=== PATIENT | male | born 1975 | race Caucasian/White ===

== ENCOUNTER 2017-08-23 03:09 | Emergency (ER) | END 2017-08-23 05:10 | disposition home or self-care (01) ==

== ENCOUNTER 2018-08-09 11:44 | Emergency (ER) | END 2018-08-09 15:48 | disposition home or self-care (01) ==

== ENCOUNTER 2018-11-12 07:20 | Inpatient (IN) | payer OTHER, MEDICAID ==
[~2018-11-12] VITALS: Ht 172.7 cm; Wt 114.5 kg
[2018-11-12] VITALS (17 sets, daily range): BP systolic 130–171; BP diastolic 67–96; PULSE 48–100; RESP 14–29; Ht 172.7 cm; Wt 114.5 kg
[~2018-11-12 07:20] MED LIST: SUCCINYLCHOLINE CHLORIDE 100 MG/5 ML SYG IV ONE
[2018-11-12] MEDS ORDERED: SOD CHLORIDE 0.9% 1,000 ML IV SCH (07:30)
[2018-11-12] MEDS ORDERED: CEFAZOLIN 2 GM/50 ML (PMX) 50 ML IVPB SCH (07:30)
[2018-11-12] MEDS ORDERED: PROPOFOL 20 ML ONE (10:51)
[2018-11-12] MEDS ORDERED: ROCURONIUM 50 MG INJ ONE (10:51)
[2018-11-12] MEDS ORDERED: FENTAnyl 50 MCG/ML VIAL ONE (10:52)
[2018-11-12] MEDS ORDERED: DEXAMETHASONE 4 MG/ML 5 ML INJ ONE (10:52)
[2018-11-12] MEDS ORDERED: NEOSTIGMINE 3 MG/3 ML SYRINGE ONE (10:52)
[2018-11-12] MEDS ORDERED: ONDANSETRON 4 MG INJ ONE (10:52)
[2018-11-12] MEDS ORDERED: CEFAZOLIN 1 GM INJ ONE (10:52)
[2018-11-12] MEDS ORDERED: MIDAZOLAM 1 MG/ML 2 ML INJ ONE (10:52)
[2018-11-12] MEDS ORDERED: GLYCOPYRROLATE 0.4 MG INJ ONE (10:52)
[2018-11-12] MEDS ORDERED: POLYMYXIN/BACITRACIN 1L IRRIG ONE (11:14)
--- NOTE | 2018-11-12 11:23 | PREAC ---
Date/Time of Note Date/Time of Note DATE: 11/12/18 TIME: 11:22 Anesthesia Eval and Record Evaluation Time Pre-Procedure Interview DATE: 11/12/18 TIME: 11:21 Age 43 Sex male NPO: 8 hrs Preoperative diagnosis INCARCERATED VENTRAL HERNIA Planned procedure OPEN COMPONENT SEPARATION WITH MESH AND INCARCERATED VENTRAL HERNIA REPAIR WITH MESH Past Medical History Past Medical History: Includes Cardio: HTN GI: Obesity Surgery & Anesthesia Issues No known issue Meds Anticoagulation: No Beta Nela within 24 hr: No Reason Beta Nela not given: Pt. not on B-Nela No Active Prescriptions or Reported Meds Current Medications Sodium Chloride 1,000 ml @ 75 mls/hr [id number] IV ; Start 11/12/18 at 07:30; Stop 11/12/18 at 19:30 Cefazolin Sodium/ Dextrose 50 ml @ 100 mls/hr PRE-OP IVPB ; Start 11/12/18 at 07:30 Meds reviewed: Yes Allergies Coded Allergies: No Known Drug Allergies (Verified Allergy, Unknown, 11/12/18) Allergies Reviewed: Yes Labs/Studies Labs Reviewed: Reviewed by anesthesiologist Result Diagram: 11/12/18 0904 11/12/18 0904 Laboratory Tests 11/12/18 09:04 test: N/A Pre-procedure Exam Last vitals Vital Signs Date Temp Pulse Resp B/P (MAP) Pulse Ox O2 O2 Flow FiO2 Time Delivery Rate 11/12/18 98.5 63 16 165/79 100 Room Air 08:54 (107) Airway: Adequate mouth opening, Adequate thyromental dist Mallampati: Mallampati III Teeth: Normal Lung: Normal Heart: Normal ASA Physical Status ASA physical status: 2 Emergency: None Planned Anesthetic General/MAC: ETT Neuraxial: Spinal Planned Pain Management Parenteral pain med Pre-operative Attestations Prior to commencing anesthesia and surgery, the patient was re-evaluated, there was verification of: *The patient's identity *The results of appropriate recent lab work and preoperative vital signs *The above evaluation not changing prior to induction *Anesthetic plan, risk benefits, alternative and complications discussed with patient/family; questions answered; patient/family understands, accepts and wishes to proceed. Yoshi Torres M.D. Nov 12, 2018 11:23
[2018-11-12] MEDS ORDERED: morphine SULFATE/PF (10 MG/10 ML) INJ ONE (11:29)
[2018-11-12] MEDS ORDERED: SUGAMMADEX SODIUM 200 MG/2 ML VIAL IV ONE ×2 (12:40→12:58)
[2018-11-12] MEDS ORDERED: FENTAnyl 50 MCG/ML VIAL IV PRN ×2 (13:00)
[2018-11-12] MEDS ORDERED: NALBUPHINE HCL (10 MG/1 ML) INJ IV PRN (13:00)
[2018-11-12] MEDS ORDERED: LABETALOL HCL 20MG INJ IV PRN (13:00)
[2018-11-12] MEDS ORDERED: MIDAZOLAM 1 MG/ML 2 ML INJ IV PRN (13:00)
[2018-11-12] MEDS ORDERED: MEPERIDINE 25 MG INJ IV PRN (13:00)
[2018-11-12] MEDS ORDERED: ALBUTEROL 0.083% (NEB) 2.5 MG/3 ML AMP HHN PRN (13:00)
[2018-11-12] MEDS ORDERED: IPRATROPIUM (NEB) 0.5 MG/2.5 ML AMP HHN PRN (13:00)
[2018-11-12] MEDS ORDERED: HYDROmorphONE 1 MG/5 ML IV SYRINGE IV PRN ×3 (13:00)
[2018-11-12] MEDS ORDERED: ONDANSETRON 4 MG INJ IV PRN ×2 (13:00)
[2018-11-12] MEDS ORDERED: ZOLPIDEM 5 MG TAB PO PRN (13:00)
[2018-11-12] MEDS ORDERED: DIPHENHYDRAMINE 50 MG INJ IV PRN ×2 (13:00)
[2018-11-12] MEDS ORDERED: TRIMETHOBENZAMIDE 100 MG/ML VIAL IM PRN ×2 (13:00)
[2018-11-12] MEDS ORDERED: hydrALAzine 20 MG INJ IV PRN (13:00)
[2018-11-12] MEDS ORDERED: EPHEDrine SULFATE 50 MG/5 ML SYG IV PRN (13:00)
[2018-11-12] MEDS ORDERED: KETOROLAC 30 MG INJ IV PRN (13:00)
[2018-11-12] MEDS ORDERED: NALOXONE (0.4 MG/ML) INJ IV PRN ×2 (13:00→13:30)
[2018-11-12] MEDS ORDERED: HYDROmorphONE 0.5 MG/0.5 ML SYG IV PRN ×2 (13:00)
[2018-11-12] MEDS ORDERED: KETOROLAC 15 MG INJ IV PRN (13:00)
[2018-11-12] MEDS ORDERED: OXYCODONE/ACETAMINOPHEN (5/325) TAB PO PRN ×2 (13:00)
--- NOTE | 2018-11-12 13:09 | OPR ---
Date/Time of Note Date/Time of Note DATE: 11/12/18 TIME: 13:02 Operative Report Procedure Date: Nov 12, 2018 Preoperative Diagnosis abdominal wall defect and incarcerated ventral hernia Postoperative Diagnosis same Operation/Procedure Performed 1. right rectus musculocutaneous flap cpt code 37179 2. left rectus musculocutaneous flap cpt code 37906 3. open incarcerated ventral hernia repair cpt code 78616 4. implantation of polypropylene mesh 15 x 15 cm cpt code 21753 5. open lysis of adhesions 6. umbilicus repair and reimplantation 7. localized adjacent tissue transfer with the use of skin flaps 70 sq cm defect in the abdomen Surgeon see signature line Data Collection Specialist Vic Sterling Anesthesia Type: general Estimated Blood Loss: 10 - 50 ml's Transfusion none Specimen none Grafts/Implants none Complications none Pt Condition Post Procedure: stable Indications This is a 43-year-old male with a very large abdominal wall defect in the midepigastric area and a very large ventral hernia. He requires surgical repair. Risks alternatives benefits in personal discussed the patient. Potential complications including but not limited to bleeding infection hematoma recurrence of hernia migration mesh mesh infection pain need for additional operations were discussed with the patient. Patient expressed understanding consents to the operation. Procedure Description Patient taken to the OR and prepped and draped in usual sterile fashion. Surgical time was performed. IV antibiotics given. Generous midline incision was made from the subxiphoid region all the way to the infraumbilical site. Dissection with cautery was carried down to the decussation of the rectus sheath. The decussation was then opened up and this incision extended superiorly and inferiorly. Superiorly this was taken all the to the subxiphoid region and inferiorly up to the area of the umbilicus there and very large ventral hernia that was incarcerated and identified. Extensive lysis of adhesions performed to mobilize the incarcerated contents and the incarcerated contents were then manually reduced. The large hernia defect was identified in the midepigastric and the umbilical area. The incision was taken down further to the infraumbilical area where good fascial tissue was apparent. The left rectus this muscular cutaneous flap was then developed by making an incision in the retrorectus space. This incision was extended superiorly to the subxiphoid region and inferiorly to the infraumbilical region. This allowed the development of the left rectus musculocutaneous flap. Attention was then paid to the right rectus muscular cutaneous flap similarly the right side was addressed in the same fashion by making incision to the retrorectus space. This incision was extended superiorly to the subxiphoid space and inferiorly to the infraumbilical region past the area of the hernia. Lysis of adhesions was performed to mobilize the hernia completely. The retro-rectus space and the right rectus muscular cutaneous flap was then developed. The posterior rectus sheath was then closed primarily using a running #1 loop PDS from superior to inferior and inferior superior and tied in the middle. Implantation of a 15 x 15 cm polypropylene mesh was then performed using interrupted #1 Prolene all along the right side of the left side and the superior and inferior area of the incision. This was placed in the retrorectus space of the underlay to the rectus muscle. The anterior rectus sheath was then closed in a primary fashion with running #1 loop PDS from superior to inferior and inferior superior and tied in the middle. The wound was then evaluated. A very large midline defect still remained. Localized adjacent to his transfer with use of skin flaps was performed. The closure was made in a multilayer fashion with interrupted 0 Vicryl and skin stas. Surgical hemostasis was insured and dry dressings were applied. Bess BAIRD Nov 12, 2018 13:09
--- NOTE | 2018-11-12 13:20 | PAC ---
Date/Time of Note Date/Time of Note DATE: 11/12/18 TIME: 13:20 Post-Anesthesia Notes Post-Anesthesia Note Last documented vital signs Vital Signs Date Temp Pulse Resp B/P (MAP) Pulse Ox O2 O2 Flow FiO2 Time Delivery Rate 11/12/18 98.5 63 16 165/79 100 Room Air 08:54 (107) Activity: WNL Respiratory function: WNL Cardiovascular function: WNL Mental status: Baseline Pain reasonably controlled: Yes Hydration appropriate: Yes Nausea/Vomiting absent: Yes Yoshi Torres M.D. Nov 12, 2018 13:20
[2018-11-12] MEDS: FENTAnyl 50 MCG/ML VIAL IV PRN ×2 (13:34→13:39)
[2018-11-12] MEDS: CEFAZOLIN 2 GM/50 ML (PMX) 50 ML IVPB SCH ×2 (13:36→21:41)
[2018-11-12] MEDS: HYDROmorphONE 0.2 MG/ML PCA IV SCH (13:59)
[2018-11-12] MEDS: SOD CHLORIDE 0.9% 1,000 ML IV SCH (15:20)
--- NOTE | 2018-11-12 17:20 | HP ---
Date/Time of Note Date/Time of Note DATE: 11/12/18 TIME: 17:15 Assessment/Plan VTE Prophylaxis Risk score (from Ns)>0 risk: 2 SCD applied (from Ns): Yes Pharmacological prophylaxis: NA/contraindicated Pharm contraindication: surgical contra Lines/Catheters IV Catheter Type (from [facility]): Peripheral IV Assessment/Plan Assessment/Plan -Abdominal wall defect and incarcerated ventral hernia, s/p open incarcerated ventral hernia repair by Dr. Alvarez on 11/12/2018. Continue IV fluids and po stoperative antibiotic. Continue Dilaudid IV for pain and Zofran as needed for nausea. Advance diet per surgery. -Hypertension -Hyperlipidemia Further recommendations based on clinical course. Plan of care discussed with Dr. Ace. Result Diagram: 11/12/18 1334 11/12/18 1334 Results 24hrs Laboratory Tests Test 11/12/18 09:04 11/12/18 13:34 White Blood Count 6.3 9.5 # Red Blood Count 4.33 L 4.33 L Hemoglobin 12.7 L 12.5 L Hematocrit 37.9 L 38.3 L Mean Corpuscular Volume 87.5 88.5 Mean Corpuscular Hemoglobin 29.3 28.9 L Mean Corpuscular Hemoglobin Concent 33.5 32.6 Red Cell Distribution Width 11.7 12.0 Platelet Count 292 306 Mean Platelet Volume 9.4 9.7 Immature Granulocytes % 0.300 0.400 Neutrophils % 65.5 71.5 Lymphocytes % 23.9 20.6 Monocytes % 7.3 5.5 Eosinophils % 2.2 1.5 Basophils % 0.8 0.5 Nucleated Red Blood Cells % 0.0 0.0 Immature Granulocytes # 0.020 0.040 H Neutrophils # 4.1 6.8 Lymphocytes # 1.5 2.0 Monocytes # 0.5 0.5 Eosinophils # 0.1 0.1 Basophils # 0.1 0.1 Nucleated Red Blood Cells # 0.0 0.0 Prothrombin Time 12.0 Prothrombin Time Ratio 0.9 INR International Normalized Ratio 0.88 Activated Partial Thromboplast Time 30.7 Sodium Level 143 142 Potassium Level 4.4 4.3 Chloride Level 108 106 Carbon Dioxide Level 25 25 Anion Gap 10 11 Blood Urea Nitrogen 13 13 Creatinine 0.81 0.99 Est Glomerular Filtrat Rate mL/min > 60 > 60 Glucose Level 104 122 Calcium Level 9.2 8.2 L Total Bilirubin 0.7 0.6 Direct Bilirubin 0.00 0.00 Indirect Bilirubin 0.7 0.6 Aspartate Amino Transf (AST/SGOT) 20 20 Alanine Aminotransferase (ALT/SGPT) 30 31 Alkaline Phosphatase 126 H 113 Total Protein 7.5 7.0 Albumin 4.2 4.0 Globulin 3.30 H 3.00 Albumin/Globulin Ratio 1.27 1.33 HPI/ROS Admit Date/Time Admit Date/Time Nov 12, 2018 at 07:20 Hx of Present Illness The patient is a 43-year-old gentleman with history of hypertension hyperlipidemia. Patient has a very large abdominal wall defect in the mid epigastric area and a large ventral hernia. Patient was evaluated by Dr. Alvarez in general surgery consultation. Patient was brought to the hospital and underwent open ventral hernia repair. Postoperative patient experiencing significant pain. Patient is admitted for further evaluation and management. ROS 12 point review of system is negative except for what mentioned in HPI PMH/Family/Social Past Medical History Medical History: high cholesterol, hypertension Medications Current Medications Sodium Chloride 1,000 ml @ 75 mls/hr [id number] IV ; Start 11/12/18 at 07:30; Stop 11/12/18 at 19:30 Cefazolin Sodium/ Dextrose 50 ml @ 100 mls/hr PRE-OP IVPB ; Start 11/12/18 at 07:30 Hydromorphone HCl (Dilaudid) 0.2 mg PACU PRN IV MILD PAIN 1-3; Start 11/12/18 at 13:00; Stop 11/12/18 at 20:00 Hydromorphone HCl (Dilaudid) 0.4 mg PACU PRN IV MOD PAIN 4-6; Start 11/12/18 at 13:00; Stop 11/12/18 at 20:00 Hydromorphone HCl (Dilaudid) 0.6 mg PACU PRN IV SEVERE PAIN 7-10; Start 11/12/18 at 13:00; Stop 11/12/18 at 20:00 Fentanyl (Sublimaze) 25 mcg PACU ORDER PRN IV MILD PAIN 1-3 Last administered on 11/12/18at 13:39; Admin Dose 25 MCG; Start 11/12/18 at 13:00; Stop 11/12/18 at 20:00 Fentanyl (Sublimaze) 50 mcg PACU ORDER PRN IV MOD PAIN 4-6; Start 11/12/18 at 13:00; Stop 11/12/18 at 20:00 Fentanyl (Sublimaze) 75 mcg PACU ORDER PRN IV SEVERE PAIN 7-10; Start 11/12/18 at 13:00; Stop 11/12/18 at 20:00 Oxycodone/ Acetaminophen (Percocet (5/ 325)) 1 tab PACU ORDER PRN PO .PAIN 1-5; Start 11/12/18 at 13:00; Stop 11/12/18 at 20:00 Oxycodone/ Acetaminophen (Percocet (5/ 325)) 2 tab PACU ORDER PRN PO .PAIN 6-10; Start 11/12/18 at 13:00; Stop 11/12/18 at 20:00 Ondansetron HCl (Zofran Inj) 4 mg PACU ORDER PRN IV NAUSEA/VOMITING Last administered on 11/12/18at 13:13; Admin Dose 4 MG; Start 11/12/18 at 13:00; Stop 11/12/18 at 20:00 Trimethobenzamide HCl (Tigan) 200 mg PACU ORDER PRN IM NAUSEA/VOMITING; Start 11/12/18 at 13:00; Stop 11/12/18 at 20:00 Labetalol HCl (Labetalol) 5 mg PACU ORDER PRN IV HIGH BLOOD PRESSURE; Start 11/12/18 at 13:00; Stop 11/12/18 at 20:00 Hydralazine HCl (Apresoline) 5 mg PACU ORDER PRN IV HIGH BLOOD PRESSURE; Start 11/12/18 at 13:00; Stop 11/12/18 at 20:00 Ephedrine Sulfate 5 mg PACU ORDER PRN IV BLOOD PRESSURE SUPPORT; Start 11/12/18 at 13:00; Stop 11/12/18 at 20:00 Albuterol (Proventil 0.083% (Neb)) 2.5 mg PACU ORDER PRN HHN .WHEEZING; Start 11/12/18 at 13:00; Stop 11/12/18 at 20:00 Ipratropium [place] (Atrovent 0.02% (Neb)) 0.5 mg PACU ORDER PRN HHN .WHEEZING; Start 11/12/18 at 13:00; Stop 11/12/18 at 20:00 Meperidine HCl (Demerol) 25 mg PACU ORDER PRN IV .RIGORS Last administered on 11/12/18at 13:13; Admin Dose 25 MG; Start 11/12/18 at 13:00; Stop 11/12/18 at 20:00 Diphenhydramine HCl (Benadryl) 25 mg PACU ORDER PRN IV .PRURITUS; Start 11/12/18 at 13:00; Stop 11/12/18 at 20:00 Midazolam HCl (Versed) 0.5 mg PACU ORDER PRN IV .ANXIETY; Start 11/12/18 at 13:00; Stop 11/12/18 at 20:00 Hydromorphone HCl (Dilaudid) 0.2 mg Q2H PRN IV .PAIN 1-5; Start 11/12/18 at 13:00; Stop 11/13/18 at 11:37 Hydromorphone HCl (Dilaudid) 0.4 mg Q2H PRN IV .PAIN 6-10; Start 11/12/18 at 13:00; Stop 11/13/18 at 11:37 Ketorolac Tromethamine (Toradol) 30 mg Q6H PRN IV .PAIN 6-10; Start 11/12/18 at 13:00; Stop 11/13/18 at 11:37 Diphenhydramine HCl (Benadryl) 25 mg Q4H PRN IV .PRURITUS; Start 11/12/18 at 13:00; Stop 11/13/18 at 11:37 Nalbuphine HCl (Nubain) 10 mg Q4H PRN IV .PRURITUS; Start 11/12/18 at 13:00; Stop 11/13/18 at 11:37 Ondansetron HCl (Zofran Inj) 4 mg Q6H PRN IV .NAUSEA/VOMITING; Start 11/12/18 at 13:00; Stop 11/13/18 at 11:37 Trimethobenzamide HCl (Tigan) 200 mg Q6H PRN IM .NAUSEA/VOMITING; Start 11/12/18 at 13:00; Stop 11/13/18 at 11:37 Zolpidem Tartrate (Ambien) 5 mg HS MAY REPEAT X 1 PRN PO .INSOMNIA; Start 11/12/18 at 13:00; Stop 11/13/18 at 11:37 Naloxone HCl (Narcan) 0.2 mg Q2M PRN IV .RESP RATE; Start 11/12/18 at 13:00; Stop 11/13/18 at 11:37 Miscellaneous Information (* Miscellaneous Pharmacy Order) DURAMORPH: 0.2 MG SPI... GIVEN NEURAXIAL XX ; Start 11/12/18 at 13:00; Stop 11/13/18 at 11:37 Cefazolin Sodium/ Dextrose 50 ml @ 100 mls/hr Q8H IVPB Last administered on 11/12/18at 13:36; Admin Dose 100 MLS/HR; Start 11/12/18 at 13:00; Stop 11/13/18 at 12:59 Ketorolac Tromethamine (Toradol) 15 mg Q6H PRN IV PAIN; Start 11/12/18 at 13:00; Stop 11/15/18 at 12:59 Sodium Chloride 1,000 ml @ 100 mls/hr Q10H IV Last administered on 11/12/18at 15:20; Admin Dose 100 MLS/HR; Start 11/12/18 at 12:58 Naloxone HCl (Narcan) 0.2 mg Q2M PRN IV RR 8 BREATHS/MIN OR LESS; Start 11/12/18 at 13:30 Hydromorphone HCl (Dilaudid TELECOMMUNICATION SYSTEMS DESIGNER) Q4PCA IV Last administered on 11/12/18at 13:59; Admin Dose 6 MG; Start 11/12/18 at 13:30 Coded Allergies: No Known Drug Allergies (Verified Allergy, Unknown, 11/12/18) Past Surgical History Past Surgical Hx: no surgical history Family History Significant Family History: no pertinent family hx Social History Alcohol Use: none Smoking Status: Former smoker Drug Use: none Exam/Review of Systems Vital Signs Vitals Vital Signs Date Temp Pulse Resp B/P (MAP) Pulse Ox O2 O2 Flow FiO2 Time Delivery Rate 11/12/18 98.4 81 16 130/81 97 Room Air 14:50 (97) 11/12/18 2.0 13:04 Exam Constitutional: alert, oriented Head: normocephalic Neck: supple Respiratory: clear to auscultation Cardiovascular: nl pulses Gastrointestinal: soft, other (Status post surgery) Musculoskeletal: nl extremities to inspection Extremities: normal pulses Neurological: nl mental status Skin: nl turgor RADCHENKO,SHEY Nov 12, 2018 17:20
[2018-11-12] MEDS: hydrALAzine 20 MG INJ IV PRN (20:10)
[2018-11-13] MEDS ORDERED: LISI2.5T59 PO (01:38)
[2018-11-13] MEDS ORDERED: LISI-313 PO (01:38)
[2018-11-13 02:30] VITALS: BP 149/81; PULSE 85; RESP 18
[2018-11-13] MEDS: SOD CHLORIDE 0.9% 1,000 ML IV SCH ×3 (02:59→13:14)
[2018-11-13] MEDS: CEFAZOLIN 2 GM/50 ML (PMX) 50 ML IVPB SCH (04:23)
[2018-11-13 06:30] VITALS: BP 138/67; PULSE 74; RESP 18
[2018-11-13] MEDS: HYDROmorphONE 0.2 MG/ML PCA IV SCH (07:48)
[2018-11-13 08:00] VITALS: BP 142/79; PULSE 65; RESP 18
--- NOTE | 2018-11-13 11:23 | PN ---
Date/Time of Note Date/Time of Note DATE: 11/13/18 TIME: 11:22 Assessment/Plan VTE Prophylaxis Risk score (from Ns)>0 risk: 3 SCD applied (from Ns): Yes Pharmacological prophylaxis: other Lines/Catheters IV Catheter Type (from Nrs): Peripheral IV Assessment/Plan Assessment/Plan s/p open comp separation with mesh doing well dc home today Result Diagram: 11/13/18 0531 11/13/18 0531 Results 24hrs Laboratory Tests Test 11/12/18 13:34 11/13/18 05:31 White Blood Count 9.5 # 15.8 #H Red Blood Count 4.33 L 4.36 L Hemoglobin 12.5 L 12.6 L Hematocrit 38.3 L 38.2 L Mean Corpuscular Volume 88.5 87.6 Mean Corpuscular Hemoglobin 28.9 L 28.9 L Mean Corpuscular Hemoglobin Concent 32.6 33.0 Red Cell Distribution Width 12.0 12.1 Platelet Count 306 305 Mean Platelet Volume 9.7 10.0 Immature Granulocytes % 0.400 0.400 Neutrophils % 71.5 87.8 H Lymphocytes % 20.6 5.8 L Monocytes % 5.5 5.9 Eosinophils % 1.5 0.0 Basophils % 0.5 0.1 Nucleated Red Blood Cells % 0.0 0.0 Immature Granulocytes # 0.040 H 0.060 H Neutrophils # 6.8 13.8 H Lymphocytes # 2.0 0.9 Monocytes # 0.5 0.9 Eosinophils # 0.1 0.0 Basophils # 0.1 0.0 Nucleated Red Blood Cells # 0.0 0.0 Sodium Level 142 141 Potassium Level 4.3 4.5 Chloride Level 106 106 Carbon Dioxide Level 25 23 Anion Gap 11 12 Blood Urea Nitrogen 13 17 Creatinine 0.99 0.84 Est Glomerular Filtrat Rate mL/min > 60 > 60 Glucose Level 122 128 Calcium Level 8.2 L 8.9 Total Bilirubin 0.6 0.3 Direct Bilirubin 0.00 0.00 Indirect Bilirubin 0.6 0.3 Aspartate Amino Transf (AST/SGOT) 20 21 Alanine Aminotransferase (ALT/SGPT) 31 30 Alkaline Phosphatase 113 108 Total Protein 7.0 7.1 Albumin 4.0 3.9 Globulin 3.00 3.20 Albumin/Globulin Ratio 1.33 1.21 Subjective 24 Hr Interval Summary Free Text/Dictation patient doing well and wants to be discharged Exam/Review of Systems Exam Vitals Vital Signs Date Temp Pulse Resp B/P (MAP) Pulse Ox O2 O2 Flow FiO2 Time Delivery Rate 11/13/18 18 09:00 11/13/18 98.5 65 142/79 98 Room Air 08:00 (100) 11/12/18 2.0 13:04 Intake and Output 11/12/18 11/12/18 11/13/18 1515:00 23:00 07:00 IntakeIntake Total 2500 ml 990 ml 1150 ml OutputOutput Total 100 ml 400 ml BalanceBalance 2400 ml 590 ml 1150 ml Exam c/d/i Results Results 24hrs Laboratory Tests Test 11/12/18 13:34 11/13/18 05:31 White Blood Count 9.5 # 15.8 #H Red Blood Count 4.33 L 4.36 L Hemoglobin 12.5 L 12.6 L Hematocrit 38.3 L 38.2 L Mean Corpuscular Volume 88.5 87.6 Mean Corpuscular Hemoglobin 28.9 L 28.9 L Mean Corpuscular Hemoglobin Concent 32.6 33.0 Red Cell Distribution Width 12.0 12.1 Platelet Count 306 305 Mean Platelet Volume 9.7 10.0 Immature Granulocytes % 0.400 0.400 Neutrophils % 71.5 87.8 H Lymphocytes % 20.6 5.8 L Monocytes % 5.5 5.9 Eosinophils % 1.5 0.0 Basophils % 0.5 0.1 Nucleated Red Blood Cells % 0.0 0.0 Immature Granulocytes # 0.040 H 0.060 H Neutrophils # 6.8 13.8 H Lymphocytes # 2.0 0.9 Monocytes # 0.5 0.9 Eosinophils # 0.1 0.0 Basophils # 0.1 0.0 Nucleated Red Blood Cells # 0.0 0.0 Sodium Level 142 141 Potassium Level 4.3 4.5 Chloride Level 106 106 Carbon Dioxide Level 25 23 Anion Gap 11 12 Blood Urea Nitrogen 13 17 Creatinine 0.99 0.84 Est Glomerular Filtrat Rate mL/min > 60 > 60 Glucose Level 122 128 Calcium Level 8.2 L 8.9 Total Bilirubin 0.6 0.3 Direct Bilirubin 0.00 0.00 Indirect Bilirubin 0.6 0.3 Aspartate Amino Transf (AST/SGOT) 20 21 Alanine Aminotransferase (ALT/SGPT) 31 30 Alkaline Phosphatase 113 108 Total Protein 7.0 7.1 Albumin 4.0 3.9 Globulin 3.00 3.20 Albumin/Globulin Ratio 1.33 1.21 Medications Medication Current Medications Cefazolin Sodium/ Dextrose 50 ml @ 100 mls/hr PRE-OP IVPB ; Start 11/12/18 at 07:30 Hydromorphone HCl (Dilaudid) 0.2 mg Q2H PRN IV .PAIN 1-5; Start 11/12/18 at 13:00; Stop 11/13/18 at 11:37 Hydromorphone HCl (Dilaudid) 0.4 mg Q2H PRN IV .PAIN 6-10; Start 11/12/18 at 13:00; Stop 11/13/18 at 11:37 Ketorolac Tromethamine (Toradol) 30 mg Q6H PRN IV .PAIN 6-10; Start 11/12/18 at 13:00; Stop 11/13/18 at 11:37 Diphenhydramine HCl (Benadryl) 25 mg Q4H PRN IV .PRURITUS; Start 11/12/18 at 13:00; Stop 11/13/18 at 11:37 Nalbuphine HCl (Nubain) 10 mg Q4H PRN IV .PRURITUS; Start 11/12/18 at 13:00; Stop 11/13/18 at 11:37 Ondansetron HCl (Zofran Inj) 4 mg Q6H PRN IV .NAUSEA/VOMITING; Start 11/12/18 at 13:00; Stop 11/13/18 at 11:37 Trimethobenzamide HCl (Tigan) 200 mg Q6H PRN IM .NAUSEA/VOMITING; Start 11/12/18 at 13:00; Stop 11/13/18 at 11:37 Zolpidem Tartrate (Ambien) 5 mg HS MAY REPEAT X 1 PRN PO .INSOMNIA; Start 11/12/18 at 13:00; Stop 11/13/18 at 11:37 Naloxone HCl (Narcan) 0.2 mg Q2M PRN IV .RESP RATE; Start 11/12/18 at 13:00; Stop 11/13/18 at 11:37 Miscellaneous Information (* Miscellaneous Pharmacy Order) DURAMORPH: 0.2 MG SPI... GIVEN NEURAXIAL XX ; Start 11/12/18 at 13:00; Stop 11/13/18 at 11:37 Cefazolin Sodium/ Dextrose 50 ml @ 100 mls/hr Q8H IVPB Last administered on 11/13/18at 04:23; Admin Dose 100 MLS/HR; Start 11/12/18 at 13:00; Stop 11/13/18 at 12:59 Ketorolac Tromethamine (Toradol) 15 mg Q6H PRN IV PAIN; Start 11/12/18 at 13:00; Stop 11/15/18 at 12:59 Sodium Chloride 1,000 ml @ 100 mls/hr Q10H IV Last administered on 11/13/18at 02:59; Admin Dose 100 MLS/HR; Start 11/12/18 at 12:58 Naloxone HCl (Narcan) 0.2 mg Q2M PRN IV RR 8 BREATHS/MIN OR LESS; Start 11/12/18 at 13:30 Hydromorphone HCl (Dilaudid EMPLOYEE RELATION MANAGER) Q4PCA IV Last administered on 11/13/18at 07:48; Admin Dose 6 MG; Start 11/12/18 at 13:30 Hydralazine HCl (Apresoline) 10 mg Q6H PRN IV SBP>170 Last administered on 11/12/18at 20:10; Admin Dose 10 MG; Start 11/12/18 at 17:30 Bess BAIRD Nov 13, 2018 11:23
--- NOTE | 2018-11-13 11:55 | PDOCDIS ---
Discharge Instructions CONDITION [id number] Patient Condition: [id number] Stable HOME CARE INSTRUCTIONS: [id number] Diet Instructions: [id number] Regular ACTIVITY: [id number] Activity Restrictions: [id number] Slowly Increase Activity Avoid heavy lifting Do not Drive Avoid Heavy Housework [id number] Bathing Restrictions: [id number] Tub Bath FOLLOW UP/APPOINTMENTS Follow-up Plan - fu with Primary MD x 1 week - Fu with surgeon as recommended - call 911 or go to the nearest hospital if symptoms get worse - Patient verbalized understanding discharge instruction Plan dw dr Ace/staff HERO BHARDWAJ Nov 13, 2018 11:55
[2018-11-13] MEDS ORDERED: HYDR-4011 PO (12:06)
[2018-11-13 13:59] VITALS: BP 150/77; PULSE 82; RESP 18
[2018-11-13] MEDS: PIPER-TAZO 3.375 GM IV (PMX) 100 ML IVPB SCH ×2 (14:21→21:22)
--- NOTE | 2018-11-13 20:27 | PN ---
Date/Time of Note Date/Time of Note DATE: 11/13/18 TIME: 20:27 Assessment/Plan VTE Prophylaxis Risk score (from Ns)>0 risk: 4 SCD applied (from Ns): Yes Lines/Catheters IV Catheter Type (from [facility] Peripheral IV Assessment/Plan Result Diagram: 11/13/18 1211 11/13/18 0531 Results 24hrs Laboratory Tests Test 11/13/18 05:31 11/13/18 12:11 White Blood Count 15.8 #H 17.6 H Red Blood Count 4.36 L 4.37 L Hemoglobin 12.6 L 12.7 L Hematocrit 38.2 L 38.5 L Mean Corpuscular Volume 87.6 88.1 Mean Corpuscular Hemoglobin 28.9 L 29.1 Mean Corpuscular Hemoglobin Concent 33.0 33.0 Red Cell Distribution Width 12.1 12.1 Platelet Count 305 325 Mean Platelet Volume 10.0 9.5 Immature Granulocytes % 0.400 0.500 H Neutrophils % 87.8 H 85.7 H Lymphocytes % 5.8 L 6.8 L Monocytes % 5.9 6.7 Eosinophils % 0.0 0.1 Basophils % 0.1 0.2 Nucleated Red Blood Cells % 0.0 0.0 Immature Granulocytes # 0.060 H 0.090 H Neutrophils # 13.8 H 15.1 H Lymphocytes # 0.9 1.2 Monocytes # 0.9 1.2 H Eosinophils # 0.0 0.0 Basophils # 0.0 0.0 Nucleated Red Blood Cells # 0.0 0.0 Sodium Level 141 Potassium Level 4.5 Chloride Level 106 Carbon Dioxide Level 23 Anion Gap 12 Blood Urea Nitrogen 17 Creatinine 0.84 Est Glomerular Filtrat Rate mL/min > 60 Glucose Level 128 Calcium Level 8.9 Total Bilirubin 0.3 Direct Bilirubin 0.00 Indirect Bilirubin 0.3 Aspartate Amino Transf (AST/SGOT) 21 Alanine Aminotransferase (ALT/SGPT) 30 Alkaline Phosphatase 108 Total Protein 7.1 Albumin 3.9 Globulin 3.20 Albumin/Globulin Ratio 1.21 Exam/Review of Systems Exam Vitals Vital Signs Date Temp Pulse Resp B/P (MAP) Pulse Ox O2 O2 Flow FiO2 Time Delivery Rate 11/13/18 20 17:00 11/13/18 98.3 82 150/77 97 Room Air 13:59 (101) 11/12/18 2.0 13:04 Intake and Output 11/12/18 11/12/18 11/13/18 1515:00 23:00 07:00 IntakeIntake Total 2500 ml 990 ml 1150 ml OutputOutput Total 100 ml 400 ml BalanceBalance 2400 ml 590 ml 1150 ml Results Results 24hrs Laboratory Tests Test 11/13/18 05:31 11/13/18 12:11 White Blood Count 15.8 #H 17.6 H Red Blood Count 4.36 L 4.37 L Hemoglobin 12.6 L 12.7 L Hematocrit 38.2 L 38.5 L Mean Corpuscular Volume 87.6 88.1 Mean Corpuscular Hemoglobin 28.9 L 29.1 Mean Corpuscular Hemoglobin Concent 33.0 33.0 Red Cell Distribution Width 12.1 12.1 Platelet Count 305 325 Mean Platelet Volume 10.0 9.5 Immature Granulocytes % 0.400 0.500 H Neutrophils % 87.8 H 85.7 H Lymphocytes % 5.8 L 6.8 L Monocytes % 5.9 6.7 Eosinophils % 0.0 0.1 Basophils % 0.1 0.2 Nucleated Red Blood Cells % 0.0 0.0 Immature Granulocytes # 0.060 H 0.090 H Neutrophils # 13.8 H 15.1 H Lymphocytes # 0.9 1.2 Monocytes # 0.9 1.2 H Eosinophils # 0.0 0.0 Basophils # 0.0 0.0 Nucleated Red Blood Cells # 0.0 0.0 Sodium Level 141 Potassium Level 4.5 Chloride Level 106 Carbon Dioxide Level 23 Anion Gap 12 Blood Urea Nitrogen 17 Creatinine 0.84 Est Glomerular Filtrat Rate mL/min > 60 Glucose Level 128 Calcium Level 8.9 Total Bilirubin 0.3 Direct Bilirubin 0.00 Indirect Bilirubin 0.3 Aspartate Amino Transf (AST/SGOT) 21 Alanine Aminotransferase (ALT/SGPT) 30 Alkaline Phosphatase 108 Total Protein 7.1 Albumin 3.9 Globulin 3.20 Albumin/Globulin Ratio 1.21 Medications Medication Current Medications Cefazolin Sodium/ Dextrose 50 ml @ 100 mls/hr PRE-OP IVPB ; Start 11/12/18 at 07:30 Ketorolac Tromethamine (Toradol) 15 mg Q6H PRN IV PAIN; Start 11/12/18 at 13:0 0; Stop 11/15/18 at 12:59 Sodium Chloride 1,000 ml @ 100 mls/hr Q10H IV Last administered on 11/13/18at 13:14; Admin Dose 100 MLS/HR; Start 11/12/18 at 12:58 Naloxone HCl (Narcan) 0.2 mg Q2M PRN IV RR 8 BREATHS/MIN OR LESS; Start 11/12/18 at 13:30 Hydromorphone HCl (Dilaudid TUBE [employer]ILDER) Q4PCA IV Last administered on 11/13/18at 07:48; Admin Dose 6 MG; Start 11/12/18 at 13:30 Hydralazine HCl (Apresoline) 10 mg Q6H PRN IV SBP>170 Last administered on 11/12/18at 20:10; Admin Dose 10 MG; Start 11/12/18 at 17:30 Piperacillin Sod/ Tazobactam Sod 100 ml @ 200 mls/hr Q8 IVPB Last administered on 11/13/18at 14:21; Admin Dose 200 MLS/HR; Start 11/13/18 at 14:00 HERO BHARDWAJ Nov 13, 2018 20:27
[2018-11-13 20:42] VITALS: BP 157/85; PULSE 77; RESP 18
[2018-11-14] MEDS: HYDROmorphONE 0.2 MG/ML PCA IV SCH (00:36)
[2018-11-14 02:20] VITALS: BP 170/98; PULSE 76; RESP 18
[2018-11-14] MEDS: hydrALAzine 20 MG INJ IV PRN ×2 (02:26→09:57)
[2018-11-14 04:00] VITALS: BP 167/96
[2018-11-14] MEDS: SOD CHLORIDE 0.9% 1,000 ML IV SCH ×2 (04:58→09:59)
[2018-11-14] MEDS: PIPER-TAZO 3.375 GM IV (PMX) 100 ML IVPB SCH ×2 (05:28→14:41)
[2018-11-14 08:00] VITALS: BP 159/85; PULSE 97; RESP 18
[2018-11-14 09:30] VITALS: BP 172/100; PULSE 88; RESP 16
[2018-11-14] MEDS ORDERED: HYDROCODONE/APAP (5/325) TAB PO PRN (11:30)
[2018-11-14 14:00] VITALS: BP 165/88; PULSE 91; RESP 18
[2018-11-14] MEDS ORDERED: MAGNESIUM HYDROXIDE 30ML CUP PO ONE (15:30)
--- NOTE | 2018-11-14 16:58 | DS ---
Date/Time of Note Date/Time of Note DATE: 11/14/18 TIME: 16:58 Discharge Summary Admission/Discharge Info Admit Date/Time Nov 12, 2018 at 07:20 Discharge Date/Time Home Meds Active Scripts Hydrocodone/Acetaminophen ([place] 5-325 Tablet) 1 Each Tablet, 1 EACH PO Q6, #20 TAB Prov:HERO BHARDWAJ 11/13/18 Reported Medications Lisinopril* (Lisinopril*) 2.5 Mg Tablet, 2.5 MG PO HS, #30 TAB 11/13/18 Lisinopril* (Lisinopril*) 5 Mg Tablet, 5 MG PO DAILY, #30 TAB 11/13/18 Follow-up Plan - fu with Primary MD x 1 week - Fu with surgeon as recommended - call 911 or go to the nearest hospital if symptoms get worse - Patient verbalized understanding discharge instruction Plan dw dr Ace/staff Primary Care Provider Care Physician No Primary Pending Labs Laboratory Tests Test 11/14/18 05:51 White Blood Count 14.2 10^3/ul (4.8-10.8) Red Blood Count 4.26 10^6/ul (4.70-6.10) Hemoglobin 12.4 g/dl (14.0-18.0) Hematocrit 37.7 % (42.0-52.0) Mean Corpuscular Volume 88.5 fl (82.0-101.0) Mean Corpuscular Hemoglobin 29.1 pg (29.0-33.0) Mean Corpuscular Hemoglobin Concent 32.9 g/dl (32.0-37.0) Red Cell Distribution Width 12.4 % (11.5-14.5) Platelet Count 315 10^3/UL (140-415) Mean Platelet Volume 10.1 fl (7.4-10.4) Immature Granulocytes % 0.600 % (0.001-0.429) Neutrophils % 80.1 % (39.0-77.0) Lymphocytes % 11.7 % (15.0-51.0) Monocytes % 7.2 % (0.0-11.0) Eosinophils % 0.1 % (0.0-7.0) Basophils % 0.3 % (0.0-2.0) Nucleated Red Blood Cells % 0.0 /100WBC (0.0-0.0) Immature Granulocytes # 0.080 10^3/ul (0.0-0.031) Neutrophils # 11.4 10^3/ul (1.6-7.5) Lymphocytes # 1.7 10^3/ul (0.8-2.9) Monocytes # 1.0 10^3/ul (0.3-0.9) Eosinophils # 0.0 10^3/ul (0.0-0.5) Basophils # 0.0 10^3/ul (0.0-0.1) Nucleated Red Blood Cells # 0.0 10^3/ul (0.0-0.0) HERO BHARDWAJ Nov 14, 2018 16:58
--- NOTE | 2018-11-14 21:14 | PN ---
DATE: 11/14/2018 Postop day #2 status post laparotomy, repair of the incarcerated ventral hernia and umbilical hernia with component separation technique and implantation of the mesh. SUBJECTIVE: The patient states he feels okay, has been out of bed and walk around. No nausea, no vomiting. Has tolerated diet. Has passed gas. No bowel movement. OBJECTIVE: GENERAL: Awake, alert, and oriented. VITAL SIGNS: Temperature maximum 98.4, heart rate 88, respirations 16, blood pressure 169/85 and another episode 172/100, saturation 98% room air. HEART: Regular. LUNGS: Clear. ABDOMEN: Protruded with fat. Bowel sounds present. Dressing was changed. Wound is clean. There was some dried up oozed blood on the dressing that is why it was changed. No rigidity. Bowel sounds present. EXTREMITIES: Legs no calf tenderness. ASSESSMENT AND PLAN: The patient actually was on [place]. It was discontinued today morning and later on the patient required [place], was given 1 pill and now the patient is not complaining of that much of pain. The patient is willing to go home and considering the viral signs are stable except that the blood pressure is a little bit high and of course, the patient has been on anti-blood pressure medication at home, so the patient was advised to continue medication at home. Her labs, sodium, potassium, BUN and creatinine were normal. Hematology: WBC which was up to 17,600 yesterday, today is down to 14,200. Differential which was up to % 87, today is down to 80. Hemoglobin and hematocrit was stable. Therefore, the patient can be discharged from surgical point of view. I advised the patient not to eat very heavy meals for a couple of days, to drink a lot of water and walk around, use all his medications at home and call Dr. Posey' office and make an appointment for followup next week. All the questions were answered. Dictated By: KASIA DONOHUE MD PS/GEO Conf#: [id number] DID#: [id number] CC: ROSENDO BAIRD MD;*EndCC* MTDD
== END 2018-11-14 18:00 | disposition home or self-care (01) | DRG 337 ==
LOC: REC 07:20 → EDSTATUS 08:30 → 5EC 14:35
PROVIDERS: ADMIT Surgery; ATTEND Surgery
PROC: 0DNW0ZZ Release Peritoneum, Open Approach (ICD-10-PCS; 2018-11-12)
PROC: 0HX7XZZ Transfer Abdomen Skin, External Approach (ICD-10-PCS; 2018-11-12)
PROC: 0WUF0JZ Supplement Abdominal Wall with Synthetic Substitute, Open Approach (ICD-10-PCS; principal; 2018-11-12 11:00)
DX: K43.6 Other and unspecified ventral hernia with obstruction, without gangrene (principal); M95.8 Other specified acquired deformities of musculoskeletal system; K66.0 Peritoneal adhesions (postprocedural) (postinfection); I10 Essential (primary) hypertension; E78.5 Hyperlipidemia, unspecified; E78.00 Pure hypercholesterolemia, unspecified; Z87.891 Personal history of nicotine dependence
CPT/HCPCS: 80053; 85025; 85610; 85730; J0360; J0690; J1100; J1170; J2175; J2250; J2274; J2405; J2543; J2710; J3010; J7030

== ENCOUNTER 2019-06-14 05:40 | Emergency (ER) | payer OTHER, MEDICAID ==
[~2019-06-14] VITALS: Ht 170.2 cm; Wt 117.9 kg
[~2019-06-14 05:40] MED LIST changes: +BACL10TA PO; +HYDR-4011 PO; +IBUP-1542 PO; +LISI-313 PO; +LISI2.5T59 PO; -SUCCINYLCHOLINE CHLORIDE 100 MG/5 ML SYG IV ONE; +TRAM50TA2 PO
[2019-06-14 05:44] VITALS: BP 159/76; PULSE 72; RESP 16; Ht 170.2 cm; Wt 117.9 kg
[2019-06-14] MEDS ORDERED: KETOROLAC 30 MG INJ IM STA (06:12)
== END 2019-06-14 06:47 | disposition home or self-care (01) ==
LOC: FTE 05:40
DX: M54.5 Low back pain (principal); I10 Essential (primary) hypertension; Z87.891 Personal history of nicotine dependence
CPT/HCPCS: 96372; 99284; J1885